=== PATIENT | male | born 1980 | race African-American/Black ===

== ENCOUNTER 2024-07-20 09:42 | Emergency (ER) | payer OTHER ==
[2024-07-20] MEDS ORDERED: Clindamycin 150 MG CAP ONE (11:24)
== END 2024-07-20 11:50 ==
LOC: NAV ERS 09:42 → EEVIPCON 09:42 → NAV ERS 11:50
DX: S91.302A Unspecified open wound, left foot, initial encounter (principal); E11.9 Type 2 diabetes mellitus without complications; I10 Essential (primary) hypertension; Z79.4 Long term (current) use of insulin; Z79.899 Other long term (current) drug therapy; Z86.718 Personal history of other venous thrombosis and embolism; Z89.412 Acquired absence of left great toe; Z79.01 Long term (current) use of anticoagulants; X58.XXXA Exposure to other specified factors, initial encounter
CPT/HCPCS: 87070; 87077; 87186; 87205; 99284